=== PATIENT | male | born 1945 | race African-American/Black ===

== ENCOUNTER 2018-02-13 15:08 | Observation (INO) | payer OTHER ==
[2018-02-13] MEDS ORDERED: dilTIAZem HCL 125 MG/25 ML - 25 ML VIAL ONE (15:17)
[2018-02-13 15:33] VITALS: BMI 23.6
--- NOTE | 2018-02-13 16:05 | PDOC ---
History of Present Illness - General Chief Complaint: Palpitations Stated Complaint: RAPID HEART RATE Time Seen by Provider: 02/13/18 15:51 History Source: Patient, Significant Other Exam Limitations: No Limitations - History of Present Illness Initial Comments: This is a 73 YOM with h/o paroxysmal A-Fib (takes diltiazem and apixaban), HTN ( takes HCTZ), HLD (takes simvastatin), and gout (takes colchicine) who p/w lightheadedness which occurred for about one minute as he was driving to a regular appointment with his provider at the [facility]. He went inside to the appointment shortly after the lightheadedness had resolved, but still felt "off " and minimally SOB (he cannot describe his exact symptoms at that time other than this description). In the office, an EKG was done and he was found to be rapid A-fib with rate >200. He was sent here to the ED via EMS and was given Cardizem en route with improvement in his RHR to around 80 bpm. The patient currently denies any symptoms at all (no chest pain, abdominal pain, headache, neck pain, palpitations, numbness, tingling, weakness, vision changes, difficulty walking, or any other new symptoms. He has had this lightheadedness in the past, with the last episode about 2 weeks ago. [facility], and was observed in the ED there without intervention or testing until it resolved spontaneously. The patient sees a primary care nurse at the [facility] but cannot remember their name or the [facility] of [facility]. Past History - Past Medical History Allergies/Adverse Reactions: Allergies Allergy/AdvReac Type Severity Reaction Status Date / Time lisinopril Allergy Verified 02/13/18 15:30 Home Medications: Ambulatory Orders Apixaban [Eliquis -] 5 mg PO DAILY 02/13/18 Atorvastatin Ca [Lipitor] 80 mg PO HS 02/13/18 Cholecalciferol (Vitamin D3) [Vitamin D3 -] 2,000 unit PO BID 02/13/18 Colchicine 0.6 mg PO DAILY 02/13/18 Diltiazem Cd [Cardizem Cd -] 240 mg PO DAILY 02/13/18 Hydrochlorothiazide 50 mg PO DAILY 02/13/18 Cardiac Disorders: Yes COPD: No HTN: Yes - Surgical History Appendectomy: Yes - Suicide/Smoking/Psychosocial Hx Smoking History: Former smoker Have you smoked in the past 12 months: No If you are a former smoker, when did you quit?: 10 YEARS AGO Information on smoking cessation initiated: No Review of Systems - Review of Systems Able to Perform ROS?: Yes Constitutional: No: Chills, Fever, Unexplained wgt Loss HEENTM: No: Nose Congestion, Throat Pain Respiratory: Yes: Shortness of Breath (mild resolved). No: Cough Cardiac (ROS): Yes: Lightheadedness (resolved). No: Chest Pain ABD/GI: No: Constipated, Diarrhea, Nausea, Vomiting : No: Burning, Dysuria Musculoskeletal: No: Back Pain, Neck Pain Integumentary: No: Bruising, Rash Neurological: No: Headache, Numbness, Tingling, Weakness, Dizziness Endocrine: No: Unexplained Weight Gain, Unexplained Weight Loss *Physical Exam - Vital Signs Last Vital Signs Temp Pulse Resp BP Pulse Ox 98.1 F 75 20 144/63 98 02/13/18 15:31 02/13/18 20:09 02/13/18 20:09 02/13/18 20:09 02/13/18 20:10 - Physical Exam General Appearance: Yes: Nourished, Appropriately Dressed, Other (very pleasant adult male accompanied by his at bedside, answering questions appropriatley ). No: Apparent Distress HEENT: positive: EOMI, RUBEN, Normal ENT Inspection, Normal Voice, Hearing Grossly Normal. negative: Scleral Icterus (R), Scleral Icterus (L), Nasal Congestion Neck: positive: Trachea midline, Normal Thyroid, Supple. negative: Tender, Rigid Respiratory/Chest: positive: Lungs Clear, Normal Breath Sounds. negative: Respiratory Distress, Crackles, Rhonchi, Stridor, Wheezing Cardiovascular: positive: Regular Rhythm, Regular Rate, S1, S2, Murmur (3/6 late systolic murmur, 1/6 early systolic decrescendo murmur). negative: Edema, JVD Gastrointestinal/Abdominal: positive: Normal Bowel Sounds, Flat, Soft. negative : Tender, Organomegaly, Pulsatile Mass, Guarding Musculoskeletal: positive: Normal Inspection. negative: Decreased Range of Motion, Vertebral Tenderness Extremity: positive: Normal Capillary Refill, Normal Inspection, Normal Range of Motion. negative: Tender, Cyanosis Integumentary: positive: Normal Color, Dry, Warm. negative: Erythema, Rash, Bruising Neurologic: positive: food processor II-XII NML intact (grossly), Fully Oriented, Alert, Normal Mood/Affect, Normal Response, Motor Strength 5/5. negative: Facial Droop , Numbness, Sensory Deficit, Confused, Disoriented Heart Score/ECG Review - History History: Slightly suspicious - Electrocardiogram EKG: Non specific repolarization disturbance - Age Age: >/= 65 - Risk Factors Risk Factors Heart Score: Yes Hx Hypercholesterolemia, Yes Hx Hypertension Based on the list above the patient has:: 1-2 risk factors - Troponin Troponin: 1-3x normal limit - Score Heart Score - Total: 5 #1 Sinus rhythm, sinus arrhythmia, one PVC, normal axis, 1st degree AV block, flipped T-waves inferiorly, no prior EKGs available for comparison ED Treatment Course - LABORATORY CBC & Chemistry Diagram: 02/13/18 16:23 02/13/18 16:08 - ADDITIONAL ORDERS Additional order review: Laboratory Results 02/13/18 02/13/18 02/13/18 19:30 16:23 16:23 PT with INR 13.80 H INR 1.22 H PTT (Actin FS) 46.2 H Sodium Potassium Chloride Carbon Dioxide Anion Gap BUN Creatinine Creat Clearance w eGFR Random Glucose Calcium Phosphorus Magnesium Total Bilirubin AST ALT Alkaline Phosphatase Creatine Kinase Troponin I 0.12 H D B-Natriuretic Peptide Total Protein Albumin TSH 0.80 Urine Color Urine Appearance Urine pH Ur Specific [place] Urine Protein Urine Glucose (UA) Urine Ketones Urine Blood Urine Nitrite Urine Bilirubin Urine Urobilinogen Ur Leukocyte Esterase Blood Type Antibody Screen 02/13/18 02/13/18 02/13/18 16:19 16:19 16:19 PT with INR INR PTT (Actin FS) Sodium Potassium Chloride Carbon Dioxide Anion Gap BUN Creatinine Creat Clearance w eGFR Random Glucose Calcium Phosphorus Magnesium Total Bilirubin AST ALT Alkaline Phosphatase Creatine Kinase 127 Troponin I 0.09 H B-Natriuretic Peptide 2051.45 H Total Protein Albumin TSH Urine Color Straw Urine Appearance Clear Urine pH 6.0 Ur Specific [place] 1.005 Urine Protein Negative Urine Glucose (UA) Negative Urine Ketones Negative Urine Blood Negative Urine Nitrite Negative Urine Bilirubin Negative Urine Urobilinogen Negative Ur Leukocyte Esterase Negative Blood Type A POSITIVE Antibody Screen Negative 02/13/18 16:08 PT with INR INR PTT (Actin FS) Sodium 141 Potassium 3.6 Chloride 106 Carbon Dioxide 27 Anion Gap 8 BUN 17 Creatinine 1.4 H Creat Clearance w eGFR 49.54 Random Glucose 83 Calcium 8.3 L Phosphorus 3.7 Magnesium 2.0 Total Bilirubin 0.9 AST 17 ALT 12 Alkaline Phosphatase 69 Creatine Kinase Troponin I B-Natriuretic Peptide Total Protein 7.0 Albumin 3.4 TSH Urine Color Urine Appearance Urine pH Ur Specific [place] Urine Protein Urine Glucose (UA) Urine Ketones Urine Blood Urine Nitrite Urine Bilirubin Urine Urobilinogen Ur Leukocyte Esterase Blood Type Antibody Screen 02/13/18 16:23 RBC 5.62 H MCV 81.7 MCHC 33.8 RDW 14.7 MPV 10.8 Neutrophils % 75.9 Lymphocytes % 14.9 Monocytes % 8.2 Eosinophils % 0.6 Basophils % 0.4 - RADIOLOGY Radiology Studies Ordered: Category Date Time Status CHEST X-RAY PORTABLE* [RAD] Stat Radiology 02/13/18 16:08 Completed - Medications Given in the ED: ED Medications Discontinued Medications Generic Name Dose Route Start Last Admin Trade Name Freq PRN Reason Stop Dose Admin Sodium Chloride 1,000 ml 02/13/18 16:08 02/13/18 16:43 Normal Saline - IV 02/13/18 16:09 1,000 ml ONCE ONE Administration Medical Decision Making - Medical Decision Making Adult male patient p/w an episode of lightheadedness with EKG showing rapid A- rib with rate >200 at [facility] today. Takes apixaban and diltiazem at home, taking all meds at home as prescribed. Initial Vital Signs Temp Pulse Resp BP Pulse Ox 98.1 F 79 18 133/60 97 02/13/18 15:31 02/13/18 15:31 02/13/18 15:31 02/13/18 15:31 02/13/18 15:31 Exam: 3/6 late systolic decrescendo murmur, 1/6 early DDX IBNLT: arrhythmia (A-fib, WPW, Brugada, long QT, SVT, ventricular dysrhythmia, etc), medication effect, bronchitis/PNA, anxiety, PE, thyroid, etc. W/U ordered: EKG CXR CBCD CMP Mg Phos TSH UA UCx TX ordered: IVF O2 monitor HAS-BLED score is 2, correlates with 1.88% bleeding rate/year. [id number] score is 2, correlates with 2.2% adjusted stroke risk/year. EKG: Sinus rhythm, sinus arrhythmia, one PVC, normal axis, 1st degree AV block, flipped T-waves inferiorly, no prior EKGs available for comparison CXR: NADP Laboratory Tests 02/13/18 02/13/18 02/13/18 16:19 16:19 16:23 WBC 8.5 RBC 5.62 H Hgb 15.5 Hct 45.9 MCV 81.7 MCH 27.6 MCHC 33.8 RDW 14.7 MPV 10.8 Neutrophils % 75.9 Lymphocytes % 14.9 Monocytes % 8.2 Eosinophils % 0.6 Basophils % 0.4 Creatine Kinase 127 Troponin I 0.09 H B-Natriuretic Peptide 2051.45 H TSH Urine Color Straw Urine Appearance Clear Urine pH 6.0 Ur Specific [place] 1.005 Urine Protein Negative Urine Glucose (UA) Negative Urine Ketones Negative Urine Blood Negative Urine Nitrite Negative Urine Bilirubin Negative Urine Urobilinogen Negative Ur Leukocyte Esterase Negative 02/13/18 16:23 WBC RBC Hgb Hct MCV MCH MCHC RDW MPV Neutrophils % Lymphocytes % Monocytes % Eosinophils % Basophils % Creatine Kinase Troponin I B-Natriuretic Peptide TSH 0.80 Urine Color Urine Appearance Urine pH Ur Specific [place] Urine Protein Urine Glucose (UA) Urine Ketones Urine Blood Urine Nitrite Urine Bilirubin Urine Urobilinogen Ur Leukocyte Esterase Troponin will be repeated at 4 hours. Reassessment: Patient remains asymptomatic, no events on monitor, heart and lung exams unchanged. Vital Signs Temperature 98.1 F 02/13/18 15:31 Pulse Rate 75 02/13/18 20:09 Respiratory Rate 20 02/13/18 20:09 Blood Pressure 144/63 02/13/18 20:09 O2 Sat by Pulse Oximetry (%) 98 02/13/18 20:10 Given the patient's slight rise in 2nd troponin (0.12), murmur, flipped T-waves on exam; will ED Obs this patient. Patient and are unable to remember his primary care nurse's name but [facility] Microblog sent to [employer] for ED Obs notification. Dr. Heck spoke with Dr. Park and will inform them of the result of the third troponin. *DC/Admit/Observation/Transfer Diagnosis at time of Disposition: Atrial fibrillation with RVR, Lightheaded, Elevated brain natriuretic peptide ( BNP) level, Murmur, cardiac - Discharge Dispostion Condition at time of disposition: Guarded Admit: Yes - Referrals Referrals: ON STAFF,NOT [Primary Care Provider] - - Patient Instructions Printed Discharge Instructions: DI for Atrial Fibrillation Additional Instructions: You were seen in the ER for lightheadedness and rapid heart rate with atrial fibrillation on your EKG. We did lab work on your blood and urine, an electrocardiogram, and a chest x-ray, and we do not believe you are having a heart attack or other serious issue at this time. Your symptoms improved with the medications we given to you (the Cardizem). We did hear a heart murmur on your heart exam and you should follow up with your primary care nurse about this. We also After our assessment, we do not believe you are having a medical emergency at this time, and we believe you are safe to go home. Please follow up with your regular PCP doctor in 1-3 days. Also follow up with your primary care nurse ANTONELLA. Call their clinic as soon as possible, tell them you were seen in the ER, and tell them you need an appointment. If you have any new or worsening symptoms , especially worsening palpitations, chest discomfort, shortness of breath, sweats, nausea, loss of consciousness, or other symptoms, please come back to the ER at any time (24 hours a day). If you are having severe or life threatening symptoms, or symptoms that make it unsafe to drive or have someone drive you, please call 911. - Post Discharge Activity
[2018-02-13] MEDS ORDERED: SODIUM CHLORIDE 0.9% 500 ML INFUS.BAG IV ONE (16:08)
[2018-02-13 17:14] LABS: BASO % 0.4 % (0-2.0); EOS % 0.6 % (0-4.5); HEMATOCRIT 45.9 % (35.4-49); HEMOGLOBIN 15.5 GM/dL (11.7-16.9); LYMPH % 14.9 % (8-40); MCH 27.6 pg (25.7-33.7); MCHC 33.8 g/dl (32.0-35.9); MEAN CELL VOLUME 81.7 fl (80-96); MEAN PLT VOLUME 10.8 fl (7.5-11.1); MONO % 8.2 % (3.8-10.2); NEUT % 75.9 % (42.8-82.8); RBC 5.62 M/mm3 (4.00-5.60); RDW 14.7 % (11.9-15.9); WHITE BLOOD COUNT 8.5 K/mm3 (4.0-10.0)
[2018-02-13 17:18] LABS: URINE APPEARANCE CLEAR; URINE BILIRUBIN NEGATIVE (<2.0 mg/dL); URINE COLOR STRAW; URINE GLUCOSE (UA) NEGATIVE (NEGATIVE); URINE KETONE NEGATIVE (NEGATIVE); URINE LEUK ESTERASE NEGATIVE (NEGATIVE); URINE NITRITE NEGATIVE (NEGATIVE); URINE PROTEIN NEGATIVE (NEGATIVE); URINE UROBILINOGEN NEGATIVE mg/dL (0.2-1.0)
[2018-02-13 17:32] LABS: INR 1.22 (0.82-1.09); PROTHROMBIN TIME (PATIENT) 13.8 SEC (9.7-13.0)
[2018-02-13 17:35] LABS: ACTIVATED PTT 46.2 SECONDS (26.9-34.4)
[2018-02-13 17:48] LABS: N-TERMINAL BNP 2051.45 pg/ml (5-125)
--- NOTE | 2018-02-13 18:10 | PDOC ---
Attending Attestation - Resident Resident Name: Miriam Miller - ED Attending Attestation I have performed the following: I have examined & evaluated the patient, The case was reviewed & discussed with the resident, I agree w/resident's findings & plan, Exceptions are as noted - HPI HPI: 02/13/18 18:02 73 yo male with h/o paroxysmal afib <Shayy Heck - Last Filed: 02/13/18 18:02> - HPI HPI: The patient is a 73 year old male with past medical history of HTN, HLD, gout, and Paroxysmal Afib presents to the emergency department s/p an episode of lightheadedness lasting for a minute. The patient reports he was enroute to his appointment at the [facility] in [place] to see his PCP when the symptoms manifested. The patient reports his vital sign at [facility] showed elevated HR >200, he was given a shot of medication, after the med. his rates improved to mid 80s. The patient reports a similar incident 2 weeks ago, states going to the [facility] ed, he was let go after the symptoms subsided itself. Denies any chest pain, dyspnea, abd pain, or back pain. Denies any headaches, chills, fever, nausea, or vomiting. Denies dysuria, hematuria, or frequency or urgency to urinate. Social history: None reported. Allergies: lisinopril 02/13/18 20:03 - Physicial Exam PE: 02/13/18 20:03 GENERAL: Well-appearing, well-nourished. No apparent distress. HEENT: Normocephalic, atraumatic. PERRL, EOM intact. CARDIOVASCULAR: (+) Systolic murmur. Normal S1, S2. Regular rate and rhythm. PULMONARY: No bruit. Clear to auscultation bilaterally. ABDOMEN: Soft, non-distended, non-tender. EXTREMITIES: no pitting edema. Normal ROM in all four extremities. No gross deformities. SKIN: Warm, dry. No rash NEUROLOGICAL: No focal neurological deficits. - Medical Decision Making 02/13/18 20:03 Documentation prepared by Sloane Pereira, acting as durable medical equipment technician for Shayy Heck MD. <Sloane Pereira - Last Filed: 02/13/18 20:03>
[2018-02-13 18:40] LABS: PLATELET COUNT 214 K/MM3 (134-434); PLATELET ESTIMATE ADEQUATE
[2018-02-13 20:31] LABS: ALBUMIN 3.4 g/dl (3.4-5.0); ALK PHOS 69 U/L (45-117); ANION GAP 8 (8-16); BILIRUBIN,TOTAL 0.9 mg/dL (0.2-1.0); BLOOD UREA NITROGEN 17 mg/dL (7-18); CALCIUM 8.3 mg/dL (8.5-10.1); CHLORIDE 106 mmol/L (98-107); CO2 27 mmol/L (21-32); CREATININE 1.4 mg/dL (0.7-1.3); GLUCOSE,RANDOM 83 mg/dL (74-106); PHOSPHOROUS 3.7 mg/dL (2.5-4.9); POTASSIUM 3.6 mmol/L (3.5-5.1); SGOT/AST 17 U/L (15-37); SGPT/ALT 12 U/L (12-78); SODIUM 141 mmol/L (136-145)
--- NOTE | 2018-02-14 04:40 | PN ---
Teaching Attending Note Name of Resident: Patel Rowland ATTENDING PHYSICIAN STATEMENT I saw and evaluated the patient. I reviewed the resident's note and discussed the case with the resident. I agree with the resident's findings and plan as documented. SUBJECTIVE: 73 M with pmhx. of P A-FIB, HTN, HLD, and gout who presented with lightheadedness while driving. States his heart was beating fast earlier today at his Doctor's office at the [facility] and was found to have a heart rate of 220 there. States he had associated lightheadedness. States he missed one of his BP meds this am. Denies any chest pain, pressure, or shortness of breath. No nausea , vomiting or diarrhea. OBJECTIVE: Physical: VS: Vital Signs Period Temp Pulse Resp BP Sys/Cervantes Pulse Ox Last 24 Hr 98.1 F 75-89 18-20 125-144/51-63 97-98 GEN:NAD, Resting in bed, AA0X3 HEENT: NCAT, PERRL, Throat without erythema or exudates CARD: RRR S1, S2 II/ RAFAEL RESP: CTAB ABD: BSx4, NTD to palpation EXT:- C/C/E CBCD WBC 8.5 K/mm3 (4.0-10.0) 02/13/18 16:23 RBC 5.62 M/mm3 (4.00-5.60) H 02/13/18 16:23 Hgb 15.5 GM/dL (11.7-16.9) 02/13/18 16:23 Hct 45.9 % (35.4-49) 02/13/18 16:23 MCV 81.7 fl (80-96) 02/13/18 16:23 MCHC 33.8 g/dl (32.0-35.9) 02/13/18 16:23 RDW 14.7 % (11.9-15.9) 02/13/18 16:23 Plt Count 214 K/MM3 (134-434) 02/13/18 16:23 MPV 10.8 fl (7.5-11.1) 02/13/18 16:23 CMP Sodium 141 mmol/L (136-145) 02/13/18 16:08 Potassium 3.6 mmol/L (3.5-5.1) 02/13/18 16:08 Chloride 106 mmol/L (98-107) 02/13/18 16:08 Carbon Dioxide 27 mmol/L (21-32) 02/13/18 16:08 Anion Gap 8 (8-16) 02/13/18 16:08 BUN 17 mg/dL (7-18) 02/13/18 16:08 Creatinine 1.4 mg/dL (0.7-1.3) H 02/13/18 16:08 Creat Clearance w eGFR 49.54 (>60) 02/13/18 16:08 Random Glucose 83 mg/dL (74-106) 02/13/18 16:08 Calcium 8.3 mg/dL (8.5-10.1) L 02/13/18 16:08 Total Bilirubin 0.9 mg/dL (0.2-1.0) 02/13/18 16:08 AST 17 U/L (15-37) 02/13/18 16:08 ALT 12 U/L (12-78) 02/13/18 16:08 Alkaline Phosphatase 69 U/L (45-117) 02/13/18 16:08 Total Protein 7.0 g/dl (6.4-8.2) 02/13/18 16:08 Albumin 3.4 g/dl (3.4-5.0) 02/13/18 16:08 CARDIAC ENZYMES Creatine Kinase 120 IU/L (39-308) 02/14/18 02:30 Troponin I 0.13 ng/ml (0.00-0.05) H 02/14/18 02:30 EKG: EKG: SR with S. Arrythmia 1st degree AV Block with occ. PVC Q waves inferior leads. QtC 463 Ambulatory Orders Apixaban [Eliquis -] 5 mg PO DAILY 02/13/18 Atorvastatin Ca [Lipitor] 80 mg PO HS 02/13/18 Cholecalciferol (Vitamin D3) [Vitamin D3 -] 2,000 unit PO BID 02/13/18 Colchicine 0.6 mg PO DAILY 02/13/18 Diltiazem Cd [Cardizem Cd -] 240 mg PO DAILY 02/13/18 Hydrochlorothiazide 50 mg PO DAILY 02/13/18 ASSESSMENT AND PLAN: 73 M with pmhx. of A-FIB on Eliquis, HTN, HLD, who presents with lightheadedness 1.) A-FIB - Rate Controlled- Pt. kaylan missed Cardizem dose yesterday - C/W Cardizem - TSH - Recent Echo done at [facility] (obtain records) - C/W Eliquis 2.) Elevated Troponin - Most Likely Demand - Trend Trop/EKG - Cardio consult 3.)HTN -C/W Cardizem - C/W HCTZ 4.) NATIVIDAD - U lytes - Gentle IVF- No signs of HF - Avoid Nephrotoxine 5.) Dvt Ppx - On Eliquis Place in Obs-Tele -
--- NOTE | 2018-02-14 05:15 | HP ---
CHIEF COMPLAINT: palpitations PCP: [facility], Dr. Lewis HISTORY OF PRESENT ILLNESS: 73 yr old man with afib on elquis, HTN, HLD, gout BIBEMS due to rapid heart rate at PCP's office in [place]. He was feeling lightheadedness, vitals in the office showed HR of 220 and an ambulance was called. He did not take one of his blood pressure pills in the morning because it sometimes causes dizziness. denies constipation, abdominal cramping, chest pain, trouble swallowing, change in appetite, sob, cough. has not had a colonoscopy. thinks he lost ~10lbs since september unintentionally. Also endorses intermittent lose stools for one week at a time for past 8 months. ER course was notable for: (1) EKG (2) trop trend .09->.12->.13 Recent Travel: none PAST MEDICAL HISTORY: afib(dx'd 8 months ago),HTN, HLd, gout PAST SURGICAL HISTORY: appendectomy>10yrs ago, ankle surgeries >10yrs ago Social History: ashley mantilla, , has one adult son Smoking: quit 6yrs ago, less than 1pk/week was smoking from age 20 Alcohol: 6pk/beer/week from age 20, quit 6yrs ago Drugs: denies Family History: mother with HTN Allergies lisinopril Allergy (Verified 02/13/18 15:30) HOME MEDICATIONS: pt gets his meds at [facility] pharmacy, he has a list with him. Medication Instructions Recorded Apixaban [Eliquis -] 5 mg PO BID 02/13/18 Atorvastatin Ca [Lipitor] 80 mg PO HS 02/13/18 Cholecalciferol (Vitamin D3) 2,000 unit PO BID 02/13/18 [Vitamin D3 -] Colchicine 0.6 mg PO DAILY 02/13/18 Diltiazem Cd [Cardizem Cd -] 240 mg PO DAILY 02/13/18 Hydrochlorothiazide 50 mg PO DAILY 02/13/18 REVIEW OF SYSTEMS CONSTITUTIONAL: Present: weight change Absent: fever, chills, diaphoresis, generalized weakness, malaise, loss of appetite, HEENT: Absent: rhinorrhea, nasal congestion, throat pain, throat swelling, difficulty swallowing, mouth swelling, visual changes CARDIOVASCULAR: Present: lightheadedness, palpitations, irregular heart rate, Absent: chest pain, syncope, peripheral edema RESPIRATORY: Absent: cough, shortness of breath, dyspnea with exertion, orthopnea, wheezing, stridor, hemoptysis GASTROINTESTINAL: Absent: abdominal pain, abdominal distension, nausea, vomiting, diarrhea, constipation, melena, hematochezia GENITOURINARY: Absent: dysuria, frequency, urgency, hesitancy, hematuria, flank pain, genital pain MUSCULOSKELETAL: Absent: myalgia, arthralgia, joint swelling, back pain, neck pain SKIN: Absent: rash, itching, pallor HEMATOLOGIC/IMMUNOLOGIC: Absent: easy bleeding, easy bruising, lymphadenopathy, frequent infections ENDOCRINE: Absent: unexplained weight gain, unexplained weight loss, heat intolerance, cold intolerance NEUROLOGIC: Absent: headache, focal weakness or paresthesias, dizziness, unsteady gait, seizure PHYSICAL EXAMINATION Vital Signs - 24 hr 02/13/18 02/13/18 02/13/18 15:31 17:00 20:09 Temperature 98.1 F Pulse Rate 79 Pulse Rate [ 84 75 Radial] Respiratory 18 20 20 Rate Blood Pressure 133/60 Blood Pressure 137/51 144/63 [Left Arm] O2 Sat by Pulse 97 98 98 Oximetry (%) 02/13/18 02/14/18 20:10 03:44 Temperature Pulse Rate Pulse Rate [ 89 Radial] Respiratory 18 Rate Blood Pressure Blood Pressure 125/53 [Left Arm] O2 Sat by Pulse 98 98 Oximetry (%) GENERAL: Awake, alert, and fully oriented, in no acute distress. HEAD: Normal with no signs of trauma. EYES: Pupils equal, round and reactive to light, extraocular movements intact, sclera anicteric, conjunctiva clear. No lid lag. EARS, NOSE, THROAT: oropharynx clear without exudates. Moist mucous membranes. NECK: Normal range of motion, supple without lymphadenopathy, JVD, or masses. no bruits LUNGS: Breath sounds equal, clear to auscultation bilaterally. No wheezes, and no crackles. No accessory muscle use. HEART: Regular rate and rhythm, normal S1 and S2 with RAFAEL murmur heard in best in RUSB, no rub or gallop. ABDOMEN: Soft, nontender, not distended, normoactive bowel sounds, no guarding, no rebound, no masses. No hepatomegaly or splenomegaly. MUSCULOSKELETAL: Normal range of motion at all joints. No bony deformities or tenderness. No CVA tenderness. UPPER EXTREMITIES: 2+ radial pulses, warm, well-perfused. No cyanosis. No clubbing. No peripheral edema. LOWER EXTREMITIES: 2+ dp pulses, warm, well-perfused. No calf tenderness. No peripheral edema. NEUROLOGICAL: Cranial nerves II-XII intact. Normal speech. facial symmetry, 5/ 5 strength in all upper and lower muscle grps to flexion and extentiom, 5/5 hand breakfast attendant PSYCHIATRIC: Cooperative. Good eye contact. Appropriate mood and affect. SKIN: Warm, dry, normal turgor, no rashes or lesions noted, normal capillary refill. Laboratory Results - last 24 hr 02/13/18 02/13/18 02/13/18 16:08 16:19 16:19 WBC RBC Hgb Hct MCV MCH MCHC RDW Plt Count MPV Neutrophils % Lymphocytes % Monocytes % Eosinophils % Basophils % Platelet Estimate Platelet Comment PT with INR INR PTT (Actin FS) Sodium 141 Potassium 3.6 Chloride 106 Carbon Dioxide 27 Anion Gap 8 BUN 17 Creatinine 1.4 H Creat Clearance w eGFR 49.54 Random Glucose 83 Calcium 8.3 L Phosphorus 3.7 Magnesium 2.0 Total Bilirubin 0.9 AST 17 ALT 12 Alkaline Phosphatase 69 Creatine Kinase 127 Troponin I 0.09 H B-Natriuretic Peptide 2051.45 H Total Protein 7.0 Albumin 3.4 TSH Urine Color Straw Urine Appearance Clear Urine pH 6.0 Ur Specific [place] 1.005 Urine Protein Negative Urine Glucose (UA) Negative Urine Ketones Negative Urine Blood Negative Urine Nitrite Negative Urine Bilirubin Negative Urine Urobilinogen Negative Ur Leukocyte Esterase Negative Blood Type Antibody Screen 02/13/18 02/13/18 02/13/18 16:19 16:23 16:23 WBC 8.5 RBC 5.62 H Hgb 15.5 Hct 45.9 MCV 81.7 MCH 27.6 MCHC 33.8 RDW 14.7 Plt Count 214 MPV 10.8 Neutrophils % 75.9 Lymphocytes % 14.9 Monocytes % 8.2 Eosinophils % 0.6 Basophils % 0.4 Platelet Estimate Adequate Platelet Comment Large platelets PT with INR 13.80 H INR 1.22 H PTT (Actin FS) 46.2 H Sodium Potassium Chloride Carbon Dioxide Anion Gap BUN Creatinine Creat Clearance w eGFR Random Glucose Calcium Phosphorus Magnesium Total Bilirubin AST ALT Alkaline Phosphatase Creatine Kinase Troponin I B-Natriuretic Peptide Total Protein Albumin TSH Urine Color Urine Appearance Urine pH Ur Specific [place] Urine Protein Urine Glucose (UA) Urine Ketones Urine Blood Urine Nitrite Urine Bilirubin Urine Urobilinogen Ur Leukocyte Esterase Blood Type A POSITIVE Antibody Screen Negative 02/13/18 02/13/18 02/14/18 16:23 19:30 02:30 WBC RBC Hgb Hct MCV MCH MCHC RDW Plt Count MPV Neutrophils % Lymphocytes % Monocytes % Eosinophils % Basophils % Platelet Estimate Platelet Comment PT with INR INR PTT (Actin FS) Sodium Potassium Chloride Carbon Dioxide Anion Gap BUN Creatinine Creat Clearance w eGFR Random Glucose Calcium Phosphorus Magnesium Total Bilirubin AST ALT Alkaline Phosphatase Creatine Kinase 120 Troponin I 0.12 H D 0.13 H B-Natriuretic Peptide Total Protein Albumin TSH 0.80 Urine Color Urine Appearance Urine pH Ur Specific [place] Urine Protein Urine Glucose (UA) Urine Ketones Urine Blood Urine Nitrite Urine Bilirubin Urine Urobilinogen Ur Leukocyte Esterase Blood Type Antibody Screen ASSESSMENT/PLAN: 73 yr old man with HTN, afib, bibems for rapid heart rate in doctor's office, placed on observation for evaluation #Elevated troponins - r/o ACS - possibly due to rapid heart rate earlier, repeat one more draw to trend down - likely went into rapid rate due to missed dose of cardizem, check tsh to r/o thyroid dysfunction as cause - as per pt echo was completed 2 months ago and was normal, if possible obtain - Dr. Leo consulted for risk assessment/stress test, pt denied ever receiving a stress test in the past #Afib - continue eliquis BID 5mg - cardizem 240mg po daily #HTN - controlled - hctz 50mg po daily #HLD - atorvastatin 80mg po HS #DVT: on eliquis #Diet: low sodium Visit type - Emergency Visit Emergency Visit: Yes ED Registration Date: 02/13/18 Care time: The patient presented to the Emergency Department on the above date and was hospitalized for further evaluation of their emergent condition. - New Patient This patient is new to me today: Yes Date on this admission: 02/14/18 - Critical Care Critical Care patient: No Hospitalist Screening - Colonoscopy Questionnaire Colonoscopy Questionnaire: Colonoscopy Questionnaire - Patient: 50 - 75 years old and never had a screening colonoscopy: Unknown History of colon or rectal polyps, or CA: Unknown History of IBD, Crohn's disease or UC: Unknown History of abdominal radiation therapy as a child: Unknown - Relative: 1 with colon or rectal CA, or polyps at age 60 or younger: Unknown Colon or rectal CA diagnosed at age 45 or younger: Unknown Multiple relatives with colon or rectal CA: Unknown - Outcome: Screening Result: Negative Screen
[2018-02-14 09:01] LABS: ANION GAP 4 (8-16); BLOOD UREA NITROGEN 18 mg/dL (7-18); CALCIUM 9.2 mg/dL (8.5-10.1); CHLORIDE 106 mmol/L (98-107); CO2 31 mmol/L (21-32); CREATININE 1.6 mg/dL (0.7-1.3); GLUCOSE,RANDOM 86 mg/dL (74-106); POTASSIUM 4.3 mmol/L (3.5-5.1); SODIUM 141 mmol/L (136-145)
--- NOTE | 2018-02-14 09:27 | PN ---
Physical Exam: SUBJECTIVE: Briefly, 73yo M Afib (eliquis), HTN/HLD, and gout who was brought it from his PCP's office due to feeling lightheaded and found to have rapid HR up to 220 's. Currently pt has had not had any other episodes since admission. He reports not taking one of his medications at home, however he is a poor senior medical transcriptionist and does not remember which medication it is. He thinks it was Cardizem, but unsure at this time. OBJECTIVE: Vital Signs Period Temp Pulse Resp BP Sys/Cervantes Pulse Ox Last 24 Hr 98 F-98.1 F 74-89 16-20 117-144/51-65 97-100 GENERAL: NAD, awake, alert, and fully oriented, laying in bed HEENT: EOMI, WILLOW, sclera anicteric, moist mucosa noted, no JVD present LUNGS: CTA bilaterally, no wheezes, no crackles, no accessory muscle use. HEART: RRR, S1, S2 with harsh 3/6 RUSB murmur radiating to LLSB and 2/6 diastolic murmur at apex ABDOMEN: Soft, NT/ND, normoactive bowel sounds, no guarding, no rebound, no hepatomegaly, no masses. EXTREMITIES: 2+ DP pulses, warm, no edema. PSYCH: Normal mood, normal affect. SKIN: Warm, dry, no rashes or lesions noted Laboratory Results - last 24 hr 02/13/18 02/13/18 02/13/18 16:08 16:19 16:19 WBC RBC Hgb Hct MCV MCH MCHC RDW Plt Count MPV Neutrophils % Lymphocytes % Monocytes % Eosinophils % Basophils % Platelet Estimate Platelet Comment PT with INR INR PTT (Actin FS) Sodium 141 Potassium 3.6 Chloride 106 Carbon Dioxide 27 Anion Gap 8 BUN 17 Creatinine 1.4 H Creat Clearance w eGFR 49.54 Random Glucose 83 Calcium 8.3 L Phosphorus 3.7 Magnesium 2.0 Total Bilirubin 0.9 AST 17 ALT 12 Alkaline Phosphatase 69 Creatine Kinase 127 Troponin I 0.09 H B-Natriuretic Peptide 2051.45 H Total Protein 7.0 Albumin 3.4 TSH Urine Color Straw Urine Appearance Clear Urine pH 6.0 Ur Specific [employer] 1.005 Urine Protein Negative Urine Glucose (UA) Negative Urine Ketones Negative Urine Blood Negative Urine Nitrite Negative Urine Bilirubin Negative Urine Urobilinogen Negative Ur Leukocyte Esterase Negative Blood Type Antibody Screen 02/13/18 02/13/18 02/13/18 16:19 16:23 16:23 WBC 8.5 RBC 5.62 H Hgb 15.5 Hct 45.9 MCV 81.7 MCH 27.6 MCHC 33.8 RDW 14.7 Plt Count 214 MPV 10.8 Neutrophils % 75.9 Lymphocytes % 14.9 Monocytes % 8.2 Eosinophils % 0.6 Basophils % 0.4 Platelet Estimate Adequate Platelet Comment Large platelets PT with INR 13.80 H INR 1.22 H PTT (Actin FS) 46.2 H Sodium Potassium Chloride Carbon Dioxide Anion Gap BUN Creatinine Creat Clearance w eGFR Random Glucose Calcium Phosphorus Magnesium Total Bilirubin AST ALT Alkaline Phosphatase Creatine Kinase Troponin I B-Natriuretic Peptide Total Protein Albumin TSH Urine Color Urine Appearance Urine pH Ur Specific [employer] Urine Protein Urine Glucose (UA) Urine Ketones Urine Blood Urine Nitrite Urine Bilirubin Urine Urobilinogen Ur Leukocyte Esterase Blood Type A POSITIVE Antibody Screen Negative 02/13/18 02/13/18 02/14/18 16:23 19:30 02:30 WBC RBC Hgb Hct MCV MCH MCHC RDW Plt Count MPV Neutrophils % Lymphocytes % Monocytes % Eosinophils % Basophils % Platelet Estimate Platelet Comment PT with INR INR PTT (Actin FS) Sodium Potassium Chloride Carbon Dioxide Anion Gap BUN Creatinine Creat Clearance w eGFR Random Glucose Calcium Phosphorus Magnesium Total Bilirubin AST ALT Alkaline Phosphatase Creatine Kinase 120 Troponin I 0.12 H D 0.13 H B-Natriuretic Peptide Total Protein Albumin TSH 0.80 Urine Color Urine Appearance Urine pH Ur Specific [employer] Urine Protein Urine Glucose (UA) Urine Ketones Urine Blood Urine Nitrite Urine Bilirubin Urine Urobilinogen Ur Leukocyte Esterase Blood Type Antibody Screen 02/14/18 08:30 WBC RBC Hgb Hct MCV MCH MCHC RDW Plt Count MPV Neutrophils % Lymphocytes % Monocytes % Eosinophils % Basophils % Platelet Estimate Platelet Comment PT with INR INR PTT (Actin FS) Sodium 141 Potassium 4.3 Chloride 106 Carbon Dioxide 31 Anion Gap 4 L BUN 18 Creatinine 1.6 H Creat Clearance w eGFR Random Glucose 86 Calcium 9.2 Phosphorus Magnesium Total Bilirubin AST ALT Alkaline Phosphatase Creatine Kinase Troponin I B-Natriuretic Peptide Total Protein Albumin TSH Urine Color Urine Appearance Urine pH Ur Specific [employer] Urine Protein Urine Glucose (UA) Urine Ketones Urine Blood Urine Nitrite Urine Bilirubin Urine Urobilinogen Ur Leukocyte Esterase Blood Type Antibody Screen Active Medications Generic Name Dose Route Start Last Admin Trade Name Freq PRN Reason Stop Dose Admin Apixaban 5 mg 02/14/18 10:00 Eliquis - PO BID [facility] Atorvastatin Calcium 80 mg 02/14/18 22:00 Lipitor - PO HS [facility] Cholecalciferol 2,000 unit 02/14/18 10:00 Vitamin D3 - PO BID [facility] Colchicine 0.6 mg 02/14/18 10:00 Colcrys - PO DAILY [facility] Diltiazem HCl 240 mg 02/14/18 10:00 Cardizem Cd - PO DAILY [facility] Sodium Chloride 1,000 mls @ 75 mls/hr 02/14/18 09:30 Normal Saline - IV ASDIR [facility] ASSESSMENT/PLAN: 1) Atrial fibrillation with RVR --Possibly 2/2 to missing cardizem dose --No episodes currently --Cardiology on board: --Discontinue Cardizem in setting of systolic LV dysfunction --Start Coreg 12.5mg PO BID --start Diovan 40mg PO qDaily --start Aldactone 25mg PO qdaily --Continue Eliquis 5mg PO BID ==TSH normal; no signs of infection 2) Elevated troponin --Most likely demand in setting of RVR --Continue to trend 3) Aortic stenosis --Echocardiogram showing moderate to severe AR with moderate LV function reduction --Needs futher cardiac work-up and possible surgical intervention --Cardiology recs: Advised for early intervention including R and L heart cardiac cath and eventual aortic valve replacement 4) ANTIVIDAD --Most likely hypoperfusion to kidneys with RVR episode; unknown baseline currently --Gently hydrate with IVF --Holding HCTZ FEN: Fluids: NS@75cc/hr Electrolyte abnormalities: None currently Nutrition: Sodium controlled diet PPX: DVT - Already on Eliquis GI - Not indicated currently Dispo: continue cardiac monitoring; will [facility]; potential transfer for cardiac catherization Case discussed with Dr. Jean Carlos Mccall, DO - IM PGY-1 Visit type - Emergency Visit Emergency Visit: No - New Patient This patient is new to me today: No - Critical Care Critical Care patient: No
[2018-02-14] MEDS: SODIUM CHLORIDE 1,000 ML IV SCH (09:46)
[2018-02-14] MEDS ORDERED: HYDROCHLOROTHIAZIDE 25 MG TABLET (FP) PO SCH (10:00)
--- NOTE | 2018-02-14 10:05 | EKG ---
Test Reason : Blood Pressure : / mmHG Vent. Rate : 080 BPM Atrial Rate : 080 BPM P-R Int : 224 ms QRS Dur : 120 ms QT Int : 402 ms P-R-T Axes : 043 -09 -54 degrees QTc Int : 463 ms SINUS RHYTHM WITH SINUS ARRHYTHMIA WITH 1ST DEGREE A-V BLOCK WITH OCCASIONAL PREMATURE VENTRICULAR COMPLEXES POSSIBLE LEFT ATRIAL ENLARGEMENT LEFT VENTRICULAR HYPERTROPHY WITH QRS WIDENING INFERIOR INFARCT , AGE UNDETERMINED Inferior T wave inversions ABNORMAL ECG NO PREVIOUS ECGS AVAILABLE Confirmed by MD Gary, Jorge Luis ([id number]) on 02/14/2018 10:04:56 AM Referred By: Confirmed By:Jorge Luis Vega MD
[2018-02-14] MEDS: COLCHICINE 0.6 MG TABLET (FP) PO SCH (10:20)
[2018-02-14] MEDS: APIXABAN 5 MG TABLET PO SCH ×2 (10:20→22:19)
[2018-02-14] MEDS: CHOLECALCIFEROL (VITAMIN D3) 1,000 UNIT TABLET (FP) PO SCH ×2 (10:21→22:20)
--- NOTE | 2018-02-14 14:59 | PN ---
Teaching Attending Note Name of Resident: Salvador Mccall ATTENDING PHYSICIAN STATEMENT I saw and evaluated the patient. I reviewed the resident's note and discussed the case with the resident. I agree with the resident's findings and plan as documented. SUBJECTIVE: seen at 9:30 am. denied any CP or SOB. no palpitations ,. no cough . no fever ro chills. reports similar episode of light headedness 2 weeks ago. this time had light headedness , evaluated by PCP and was told Hr was 200. told in ambulance he had elevated HR still and was given an injection OBJECTIVE: NAD, AAOx3. MMM, no JVD CV: RRR, 3/6 DM, at RUSB with radiation to LLSB. 2/6 SM at apex with radiation to [place]. 2/6 DM at apex. Lungs: CTAB Ext: no edema ASSESSMENT AND PLAN: 73 y/o man with h/o A fib, HTN, HLP, and gout who presented to hs PCP with palpitations and light headedness and was found to have A fib with RVR . 1- A fib with RVR. could be due to missing a dose of his cardizem. elevated troponin cold be due to demand event in setting of tachycardia . EKG With sinus rhythm , Q waves in inferior leads and TWI in inferiolateral leads. - echo with mod-severe AR, and mOd LV reduction - d/w Dr. Nielsen. dc cardizem, add coreg and ACEI - tele - cont eliquis - monitor electrolytes - TSH NL, no signs of infection - Not in heart failure clinically - [facility] 2- NATIVIDAD: try gentle hydration - monitor with ACEI - obtain Cr base line [facility] 3- HTN: ACEI , and coreg hold HCTZ while hydrating 4- Mod-severe AR: need further w/u and possible surgical intervention HLOC
--- NOTE | 2018-02-14 15:10 | PN ---
Progress Note (short form) - Note Progress Note: Chief Complaint: Events noted, notes reviewed, denies any chest discomfort, denies any dyspnea, denies any palpitations but reported transient dizziness History of Present Illness: Seen and examined on telemetry. Full consult dictated Echocardiography performed earlier today preliminary report of which revealed Left ventricular cavity dilatation with moderate diffuse global hypokinesia with estimated left ventricular ejection fraction between 35-40%, severe aortic valve regurgitation, mild to moderate mitral valve regurgitation - Current Medication List Current Medications: Current Medications Apixaban (Eliquis -) 5 mg PO BID [facility] Last Admin: 02/14/18 10:20 Dose: 5 mg Atorvastatin Calcium (Lipitor -) 80 mg PO [facility] Cholecalciferol (Vitamin D3 -) 2,000 unit PO BID [facility] Last Admin: 02/14/18 10:21 Dose: 2,000 unit Colchicine (Colcrys -) 0.6 mg PO DAILY [facility] Last Admin: 02/14/18 10:20 Dose: 0.6 mg Diltiazem HCl (Cardizem Cd -) 240 mg PO DAILY [facility] Last Admin: 02/14/18 10:20 Dose: 240 mg Review of Systems: Constitutional: Denies fever or chills Head and Neck: Denies Headaches, photophobia or blurring of vision Respiratory: Denies cough or sputum production Cardiovascular: As noted above Gastrointestinal: Denies nausea, vomiting, diarrhea or abdominal discomfort Genitourinary: Denies frequency, hesitancy or urgency Musculoskeletal: No symptoms reported Endocrine: No symptoms reported - Objective Vital Signs: Last Vital Signs Temp Pulse Resp BP Pulse Ox 98 F 62 22 141/58 98 02/14/18 06:11 02/14/18 10:33 02/14/18 10:33 02/14/18 10:33 02/14/18 10:33 Intake & Output 02/11/18 02/12/18 02/13/18 02/14/18 23:59 23:59 23:59 23:59 Weight 142 lb 142 lb HEENT: Atraumatic, [place]IT[place], EOMI Neck: Supple Negative JVD No Bruit Cardiovascular: S1 S2 Regular Rate and Rhythm Grade 2/6 RAFAEL, Grade 3/6 Diastolic murmur Respiratory: CTA Bilaterally Gastrointestinal: Soft Benign Normal Bowel Sounds Ext: Negative Edema Labs: Troponin, BNP 02/13/18 02/13/18 02/14/18 16:19 19:30 02:30 Troponin I 0.09 H 0.12 H D 0.13 H B-Natriuretic Peptide 2051.45 H 02/14/18 02/14/18 08:30 10:15 Troponin I 0.08 H D 0.07 H B-Natriuretic Peptide CBC, BMP 02/13/18 16:23 02/14/18 08:30 INR, PTT INR 1.22 (0.82-1.09) H 02/13/18 16:23 Hepatic Panel Total Bilirubin 0.9 mg/dL (0.2-1.0) 02/13/18 16:08 AST 17 U/L (15-37) 02/13/18 16:08 ALT 12 U/L (12-78) 02/13/18 16:08 Alkaline Phosphatase 69 U/L (45-117) 02/13/18 16:08 Albumin 3.4 g/dl (3.4-5.0) 02/13/18 16:08 Assessment/Plan ASSESSMENT: 1. Paroxysmal atrial fibrillation currently in sinus rhythm on chronic anticoagulation therapy with Eliquis, [id number] score of 3. 2. Systolic left ventricular dysfunction with class 0 [place] [employer] classification left ventricular failure, compensated/euvolemic, BMP elevation most likely related to the above-noted paroxysmal atrial fibrillation , the above-noted systolic left ventricular dysfunction could be related to tachycardia induced cardiomyopathy versus valvular disease/aortic valve induced cardiomyopathy. 3. Aortic valve disease aortic valve regurgitation, severe in severity. 4. Mitral valve regurgitation, moderate in severity. 5. Coronary artery disease/ischemic dilated cardiomyopathy to be considered in the differential diagnosis. 6. Hypertensive cardiovascular disease/hypertensive cardiomyopathy to be considered in the differential diagnosis. 7. Hypercholesterolemia. 8. Chronic kidney disease. PLAN: 1. Recommend discontinuation of Cardizem CD therapy considering the above- noted clinical presentation (contraindicated with the above-noted systolic left ventricular dysfunction). 2. Recommend initiation of Coreg therapy at 12.5 mg twice daily. 3. Recommend initiation of Diovan therapy at 40 mg once daily considering the above-noted clinical presentation with close monitoring of renal function and electrolytes. 4. Recommend initiation of Aldactone therapy at 25 mg once daily considering the above-noted clinical presentation with caution and close monitoring of renal function and electrolytes. 5. Reviewed in detail with the patient the above-noted clinical presentation and advised early intervention for the above-noted valvular pathology is recommended including proceeding with right and left heart cardiac catheterization coronary angiography and eventual referral for aortic valve replacement/CryoMaze procedure/+/- left atrial appendage ligation, above is to be performed on outpatient basis. Lashell Cox MD
[2018-02-14] MEDS ORDERED: VALSARTAN 80 MG TABLET (UD) ONE (16:50)
[2018-02-14] MEDS: VALSARTAN 40 MG TABLET (FP) PO SCH (16:52)
--- NOTE | 2018-02-14 17:01 | CONS ---
DATE OF CONSULTATION: 02/14/2018 REQUESTING LIBERTARIAN: Hospitalist CHIEF COMPLAINT: Evaluation of cardiac arrhythmia. HISTORY OF PRESENT ILLNESS: A 73-year-old male of descent with known history of valvular heart disease, aortic valve disease, aortic valve regurgitation, paroxysmal atrial fibrillation, CHADS2-VASc score of 3, which was noted a few months ago on anticoagulation therapy with Eliquis, hypertensive cardiovascular disease, hypercholesterolemia, who denied any history of diabetes mellitus, who presented to [facility] emergency room when he was noted to be by his primary care provider to have rapid heartbeat, and he was noted to be in atrial fibrillation with rapid ventricular response. Patient had reported dizziness, and upon arrival to the emergency room patient subsequently converted to sinus rhythm. Patient had reported dizziness but denied any palpitations. Patient denied any near syncope or syncope. Patient denied any chest discomfort. Patient denied any dyspnea, orthopnea, paroxysmal nocturnal dyspnea, or peripheral edema. Patient denied any fatigue or tiredness. He was informed by his primary care provider, who was at the [facility], that he has a heart murmur, subsequent evaluation of which was undertaken by a winderman who had informed the patient that he has aortic valve regurgitation, and eventually aortic valve replacement procedure is to be performed. Patient currently is in sinus rhythm and does not offer any complaints. Echocardiography was performed which revealed systolic left ventricular dysfunction, moderate in severity, with estimated left ventricular ejection fraction of 40%, severe eccentric aortic valve regurgitation and mild to moderate mitral valve regurgitation with no pulmonary hypertension. PAST MEDICAL HISTORY: Aortic valve disease, aortic valve regurgitation, hypertensive cardiovascular disease, hypercholesterolemia. SOCIAL HISTORY: Remote history of tobacco abuse. FAMILY HISTORY: No family history of coronary artery disease. ALLERGIES: LISINOPRIL. MEDICAL THERAPY: Currently includes Eliquis 5 mg twice a day, Lipitor 80 mg once a day, vitamin D 2000 international units twice a day, colchicine 0.6 mg once a day for gout, Cardizem CD 240 mg once a day. REVIEW OF SYSTEMS: Head and neck: Denies headache, photophobia, blurring of vision. Respiratory: No cough, sputum production. Cardiovascular: As noted above. Gastrointestinal: Denies nausea, vomiting, diarrhea, abdominal discomfort. Musculoskeletal: No symptoms reported. Genitourinary: No frequency or urgency. Endocrine: No symptoms reported. PHYSICAL EXAMINATION: Vital signs: Blood pressure 141/58 mmHg, pulse rate 62 beats per minute. Head/Neck: Pupils equal, reactive to light and accommodation. Extraocular muscles intact. Anicteric sclerae. Negative JVD. No bruit appreciated. Chest: Clear to auscultation, percussion. Cardiovascular: S1, S2. Regular. Grade 2/6 systolic ejection murmur. Grade 3 diastolic murmur at the aortic area. Abdomen: Soft, benign. Normoactive bowel sounds. Extremity: Negative edema. Intact distal pulses. No calf tenderness. CBC: Revealed white cell count 8.5, hemoglobin 15.5, platelets 214. Basic metabolic profile revealed sodium 141, potassium 4.3, BUN 18, creatinine 1.6, glucose 86, INR 1.22. B-type natriuretic peptide was 2051. Troponin I levels were noted. Electrocardiogram reveals sinus rhythm with premature ventricular contractions 80 beats per minute, increased voltage, and inferior Q waves suggestive of an inferior infarct, age undetermined, and nonspecific ST segment and T wave abnormality. ASSESSMENT: 1. Paroxysmal atrial fibrillation, currently in sinus rhythm on chronic anticoagulation therapy with Eliquis, CHADS-VASc score of 3. 2. Systolic left ventricular dysfunction with class 0 [place] [employer] classification left ventricular failure, compensated/euvolemic. BNP elevation most likely related to the above noted paroxysmal atrial fibrillation; the above noted systolic left ventricular dysfunction could be related to tachycardia induced cardiomyopathy versus valvular disease/aortic valve disease induced cardiomyopathy. 3. Aortic valve disease, aortic valve regurgitation, severe in severity. 4. Mitral valve regurgitation, mild to moderate in severity. 5. Coronary artery disease with evidence of demand ischemic injury most likely related to the above noted tachycardia. Ischemic dilated cardiomyopathy to be considered in the differential diagnosis. 6. Hypertensive cardiovascular disease. Hypertensive cardiomyopathy to be considered in the differential diagnosis. 7. Hypercholesterolemia. 8. Chronic kidney disease. PLAN: 1. Recommend discontinuation of Cardizem CD therapy and considering the above noted clinical presentation, contraindicated with the above noted systolic left ventricular dysfunction. 2. Recommend initiation of Coreg therapy at 12.5 mg twice daily. 3. Recommend initiation of Diovan therapy at 40 mg once daily, considering the above noted clinical presentation with close monitoring of renal function and electrolytes. 4. Recommend initiation of Aldactone therapy at 25 mg once daily considering the above noted clinical presentation with caution and close monitoring of renal function and electrolytes. 5. Reviewed in detail the patient the above noted clinical presentation and advised early intervention for the above noted valvular pathology is recommended including proceeding with right and left heart cardiac catheterization coronary angiography and eventual referral for aortic valve replacement/Cryo-Maze procedure, plus/minus left atrial appendage ligation. Above to be performed on outpatient basis. 6. Recommend the addition of daily Ecotrin therapy. Thank you for the kind referral. SURI NUÑEZ M.D. [id number] MTDD
[2018-02-14] MEDS ORDERED: ATORVASTATIN CA 80 MG TABLET (FP) PO SCH (22:00)
[2018-02-14] MEDS: CARVEDILOL 12.5 MG TABLET (FP) PO SCH (22:18)
[2018-02-14] MEDS ORDERED: CARVEDILOL 12.5 MG TABLET (FP) ONE (22:21)
[2018-02-15 08:11] LABS: HEMATOCRIT 44.7 % (35.4-49); HEMOGLOBIN 14.9 GM/dL (11.7-16.9); MCH 27.2 pg (25.7-33.7); MCHC 33.3 g/dl (32.0-35.9); MEAN CELL VOLUME 81.8 fl (80-96); MEAN PLT VOLUME 10.8 fl (7.5-11.1); PLATELET COUNT 201 K/MM3 (134-434); RBC 5.46 M/mm3 (4.00-5.60); RDW 14.7 % (11.9-15.9); WHITE BLOOD COUNT 7.9 K/mm3 (4.0-10.0)
[2018-02-15 08:12] LABS: BASO % 0.4 % (0-2.0); EOS % 1.2 % (0-4.5); LYMPH % 15.5 % (8-40); MONO % 8.2 % (3.8-10.2); NEUT % 74.7 % (42.8-82.8)
[2018-02-15 08:22] VITALS: BP 129/46; PULSE 62; TEMP 97.5
[2018-02-15 08:49] LABS: ANION GAP 4 (8-16); BLOOD UREA NITROGEN 19 mg/dL (7-18); CALCIUM 8.6 mg/dL (8.5-10.1); CHLORIDE 107 mmol/L (98-107); CO2 30 mmol/L (21-32); CREATININE 1.5 mg/dL (0.7-1.3); GLUCOSE,RANDOM 82 mg/dL (74-106); POTASSIUM 3.8 mmol/L (3.5-5.1); SODIUM 141 mmol/L (136-145)
[2018-02-15] MEDS ORDERED: SPIRONOLACTONE 25 MG TABLET (FP) PO SCH (10:00)
[2018-02-15] MEDS: SODIUM CHLORIDE 1,000 ML IV SCH (10:01)
[2018-02-15] MEDS: CHOLECALCIFEROL (VITAMIN D3) 1,000 UNIT TABLET (FP) PO SCH (10:02)
[2018-02-15] MEDS: COLCHICINE 0.6 MG TABLET (FP) PO SCH (10:02)
[2018-02-15] MEDS: VALSARTAN 40 MG TABLET (FP) PO SCH (10:02)
[2018-02-15] MEDS: CARVEDILOL 12.5 MG TABLET (FP) PO SCH (10:02)
[2018-02-15] MEDS: APIXABAN 5 MG TABLET PO SCH (10:02)
--- NOTE | 2018-02-15 13:07 | PN ---
Progress Note, Physician History of Present Illness: Remains in SR, denies chest pain, dyspnea, palpitations. - Current Medication List Current Medications: Active Medications Apixaban (Eliquis -) 5 mg PO BID [facility] Last Admin: 02/15/18 10:02 Dose: 5 mg Atorvastatin Calcium (Lipitor -) 80 mg PO HS [facility] Last Admin: 02/14/18 22:18 Dose: 80 mg Carvedilol (Coreg -) 12.5 mg PO BID [facility] Last Admin: 02/15/18 10:02 Dose: 12.5 mg Cholecalciferol (Vitamin D3 -) 2,000 unit PO BID [facility] Last Admin: 02/15/18 10:02 Dose: 2,000 unit Colchicine (Colcrys -) 0.6 mg PO DAILY [facility] Last Admin: 02/15/18 10:02 Dose: 0.6 mg Sodium Chloride (Normal Saline -) 1,000 mls @ 75 mls/hr IV ASDIR [facility] Last Admin: 02/15/18 10:01 Dose: 75 mls/hr Spironolactone (Aldactone -) 25 mg PO DAILY [facility] Last Admin: 02/15/18 10:02 Dose: 25 mg Valsartan (Diovan -) 40 mg PO DAILY [facility] Last Admin: 02/15/18 10:02 Dose: 40 mg - Objective Vital Signs: Vital Signs Temperature 97.5 F L 02/15/18 08:20 Pulse Rate 62 02/15/18 08:20 Respiratory Rate 20 02/15/18 08:20 Blood Pressure 129/46 02/15/18 08:20 O2 Sat by Pulse Oximetry (%) 100 02/15/18 08:20 Constitutional: Yes: No Distress, Calm, Thin Neck: Yes: Supple Cardiovascular: Yes: Regular Rate and Rhythm, Murmur (2/6 SM, 3/6 DM) Respiratory: Yes: Regular, CTA Bilaterally Gastrointestinal: Yes: Normal Bowel Sounds, Soft Edema: No Labs: CBC, BMP 02/15/18 06:20 02/15/18 06:20 INR, PTT INR 1.22 (0.82-1.09) H 02/13/18 16:23 - ....Imaging EKG: Report Reviewed (Tele: NSR) Problem List - Problems (1) Severe aortic insufficiency Code(s): I35.1 - NONRHEUMATIC AORTIC (VALVE) INSUFFICIENCY (2) Valvular cardiomyopathy Code(s): I42.8 - OTHER CARDIOMYOPATHIES (3) Hypertensive cardiomyopathy Code(s): I11.9 - HYPERTENSIVE HEART DISEASE WITHOUT HEART FAILURE; I43 - CARDIOMYOPATHY IN DISEASES CLASSIFIED ELSEWHERE Qualifiers: Heart failure presence: without heart failure Qualified Code(s): I11.9 - Hypertensive heart disease without heart failure; I43 - Cardiomyopathy in diseases classified elsewhere; I43 - Cardiomyopathy in diseases classified elsewhere; I43 - Cardiomyopathy in diseases classified elsewhere; I43 - Cardiomyopathy in diseases classified elsewhere (4) Chronic kidney disease Code(s): N18.9 - CHRONIC KIDNEY DISEASE, UNSPECIFIED Qualifiers: Chronic kidney disease stage: stage 2 (mild) Qualified Code(s): N18.2 - Chronic kidney disease, stage 2 (mild) (5) Atrial fibrillation with RVR Code(s): I48.91 - UNSPECIFIED ATRIAL FIBRILLATION Assessment/Plan Echocardiography 02/14/2018 Mild left ventricular cavity dilatation with moderate diffuse global hypokinesia with estimated left ventricular ejection fraction between 35-40%, severe aortic valve regurgitation, mild mitral valve regurgitation, tr TR 1. Paroxysmal atrial fibrillation currently in sinus rhythm on chronic anticoagulation therapy with Eliquis, [id number] score of 3. 2. Systolic left ventricular dysfunction with class 0 [place] [employer] classification left ventricular failure, compensated/euvolemic, BNP elevation most likely related to the above-noted paroxysmal atrial fibrillation , the above-noted systolic left ventricular dysfunction could be related to tachycardia induced cardiomyopathy versus valvular disease/aortic valve induced cardiomyopathy. 3. Aortic valve disease aortic valve regurgitation, severe in severity. 4. Coronary artery disease/ischemic dilated cardiomyopathy to be considered in the differential diagnosis. 5. Hypertensive cardiovascular disease/hypertensive cardiomyopathy to be considered in the differential diagnosis. 6. Hypercholesterolemia. 7. Chronic kidney disease. PLAN: 1. Continue Coreg therapy at 12.5 mg twice daily, Eliquis 5 bid, Lipitor 80 qhs 2. Increase Diovan 80 mg once daily considering the above-noted clinical presentation with close monitoring of renal function and electrolytes. 3. Continue Aldactone therapy 25 mg once daily considering the above-noted clinical presentation with caution and close monitoring of renal function and electrolytes. 4. Reviewed in detail with the patient the above-noted clinical presentation and advised early intervention for the above-noted valvular pathology is recommended including proceeding with right and left heart cardiac catheterization coronary angiography and eventual referral for aortic valve replacement/CryoMaze procedure/+/- left atrial appendage ligation, above is to be performed on outpatient basis.
[2018-02-15] MEDS ORDERED: VALSARTAN 40 MG TABLET (FP) PO SCH (13:30)
--- NOTE | 2018-02-15 15:10 | DS ---
Physical Exam: Patient is ok to be discharged as per Cardiology; Dr. Leo, patient will follow up with cardiologists Dr. Acosta in a week period. Patient is converted back to NSR, added Eliquis to his regimen. <Tamera Ramirez - Last Filed: 02/17/18 09:05> Physical Exam: SUBJECTIVE: Pt denies any new complaints. No episodes of tachycardia or lightheadedness since. OBJECTIVE: Vital Signs Period Temp Pulse Resp BP Sys/Cervantes Pulse Ox Last 24 Hr 97.5 F-98.1 F 54-70 16-21 108-134/39-48 97-100 PHYSICAL EXAM GENERAL: NAD, awake, alert, and fully oriented, laying in bed HEENT: EOMI, WILLOW, sclera anicteric, moist mucosa noted, no JVD present LUNGS: CTA bilaterally, no wheezes, no crackles, no accessory muscle use. HEART: RRR, S1, S2 with harsh 3/6 RUSB murmur radiating to LLSB and 2/6 diastolic murmur at apex ABDOMEN: Soft, NT/ND, normoactive bowel sounds, no guarding, no rebound, no hepatomegaly, no masses. EXTREMITIES: 2+ DP pulses, warm, no edema. PSYCH: Normal mood, normal affect. SKIN: Warm, dry, no rashes or lesions noted LABS Laboratory Results - last 24 hr 02/14/18 02/14/18 02/15/18 14:20 17:58 06:20 WBC 7.9 RBC 5.46 Hgb 14.9 Hct 44.7 MCV 81.8 MCH 27.2 MCHC 33.3 RDW 14.7 Plt Count 201 MPV 10.8 Neutrophils % 74.7 Lymphocytes % 15.5 Monocytes % 8.2 Eosinophils % 1.2 D Basophils % 0.4 Sodium Potassium Chloride Carbon Dioxide Anion Gap BUN Creatinine Random Glucose Calcium Ur Random Sodium 84 Ur Random Potassium 14.6 Ur Random Chloride 82 Urine Creatinine 123.0 02/15/18 06:20 WBC RBC Hgb Hct MCV MCH MCHC RDW Plt Count MPV Neutrophils % Lymphocytes % Monocytes % Eosinophils % Basophils % Sodium 141 Potassium 3.8 Chloride 107 Carbon Dioxide 30 Anion Gap 4 L BUN 19 H Creatinine 1.5 H Random Glucose 82 Calcium 8.6 Ur Random Sodium Ur Random Potassium Ur Random Chloride Urine Creatinine HOSPITAL COURSE: Date of Admission:02/13/18 Date of Discharge: 02/15/18 Pt admitted 02/13/18 due to tachycardia up to 200bpm at his PCP with some associated lightheadedness attributed to missing a dose of cardizem. Pt was placed in telemetry observation for his Atrial fib with RVR and did not have any relapsing episodes since placement back onto home medication. Pt unfortunately was found to have moderate to severe aortic stenosis with LV dysfunction on echocardiogram. Pt had his cardizem discontinued with added Aldactone 25mg PO qdaily, Coreg 12.5mg PO BID, and Diovan 40mg PO qDaily to optimize his medication regiment. Pt was also found to have NATIVIDAD due to hypoperfusion of his kidneys which resolved with gentle hydration of NS75cc/hr and cessation of his HCTZ. Pt is being transferred to a higher level of care facility for recommended L and R cardiac catherization with likely future aortic valve repair. Pt is in stable condition and understands risks v. benefits of transfer. Minutes to complete discharge: 35 <Salvador Mccall - Last Filed: 02/27/18 20:58> Discharge Summary - Home Medications Comprehensive Discharge Medication List: Ambulatory Orders Apixaban [Eliquis -] 5 mg PO DAILY 02/13/18 Atorvastatin Ca [Lipitor] 80 mg PO HS 02/13/18 Cholecalciferol (Vitamin D3) [Vitamin D -] 2,000 unit PO BID 02/13/18 Colchicine 0.6 mg PO DAILY 02/13/18 Carvedilol [Coreg -] 12.5 mg PO BID #60 tablet 02/15/18 Spironolactone [Aldactone -] 25 mg PO DAILY #30 tablet 02/15/18 Valsartan [Diovan] 80 mg PO DAILY #60 tablet 02/15/18 <Tamera Ramirez - Last Filed: 02/17/18 09:05> Reason For Visit: ELEVATED BRAIN NATRIURETIC PEPTIDE (BNP) LEVEL Current Active Problems Atrial fibrillation with RVR (Acute) Chronic kidney disease (Acute) Elevated brain natriuretic peptide (BNP) level (Acute) Hypertensive cardiomyopathy (Acute) Lightheaded (Acute) Murmur, cardiac (Acute) Severe aortic insufficiency (Acute) Valvular cardiomyopathy (Acute) - Home Medications Comprehensive Discharge Medication List: Ambulatory Orders Apixaban [Eliquis -] 5 mg PO DAILY 02/13/18 Atorvastatin Ca [Lipitor] 80 mg PO HS 02/13/18 Cholecalciferol (Vitamin D3) [Vitamin D -] 2,000 unit PO BID 02/13/18 Colchicine 0.6 mg PO DAILY 02/13/18 Carvedilol [Coreg -] 12.5 mg PO BID #60 tablet 02/15/18 Spironolactone [Aldactone -] 25 mg PO DAILY #30 tablet 02/15/18 Valsartan [Diovan] 80 mg PO DAILY #60 tablet 02/15/18 <Salvador Mccall - Last Filed: 02/27/18 20:58> Condition: Stable - Instructions Diet, Activity, Other Instructions: You were seen in the ER for lightheadedness and rapid heart rate with atrial fibrillation on your EKG. We did lab work on your blood and urine, an electrocardiogram, and a chest x-ray, and we do not believe you are having a heart attack or other serious issue at this time. Your symptoms improved with the medications we gave you in the hospital. in addition we did hear a heart murmur on your heart exam and you should follow up with your animal anatomist about this. Medications Please stop your Diltiazem Instead I have sent medications to your pharmacy ([address] [place] [address]): Coreg 12.5mg TWICE per day by mouth Diovan 80mg ONCE per day by mouth Aldactone 25mg ONCE per day by mouth Follow-up Please follow with Dr. Cox (animal anatomist) as soon as possible as he will want to schedule a cardiac catherization and plan for any valve replacements; Call their clinic as soon as possible, tell them you were seen in the ER, and tell them you need an appointment. Please follow-up with Dr. Lewis at the [facility] within a week for follow-up on what happened here If you have any new or worsening symptoms, especially worsening palpitations, chest discomfort, shortness of breath, sweats, nausea, loss of consciousness, or other symptoms, please come back to the ER at any time (24 hours a day). If you are having severe or life threatening symptoms, or symptoms that make it unsafe to drive or have someone drive you, please call 911. Referrals: Lashell Cox MD [Staff Physician] - ON STAFF,NOT [Primary Care Provider] - Disposition: HOME This patient is new to me today: No Emergency Visit: No Critical Care patient: No - Discharge Referral Referred to [facility] No <Salvador Mccall - Last Filed: 02/27/18 20:58>
== END 2018-02-15 15:30 | disposition home or self-care (01) ==
LOC: JER 15:08 → JERBED 21:16
PROVIDERS: ADMIT Internal Medicine; ATTEND Internal Medicine
PROC: 3E0337Z Introduction of Electrolytic and Water Balance Substance into Peripheral Vein, Percutaneous Approach (ICD-10-PCS; principal; 2018-02-13)
DX: I48.0 Paroxysmal atrial fibrillation (principal); R42 Dizziness and giddiness; R79.89 Other specified abnormal findings of blood chemistry; R01.1 Cardiac murmur, unspecified; E78.5 Hyperlipidemia, unspecified; M10.9 Gout, unspecified; Z79.01 Long term (current) use of anticoagulants; Z87.891 Personal history of nicotine dependence; R77.8 Other specified abnormalities of plasma proteins; N17.9 Acute kidney failure, unspecified; I50.1 Left ventricular failure, unspecified; I35.1 Nonrheumatic aortic (valve) insufficiency; I34.0 Nonrheumatic mitral (valve) insufficiency; I42.0 Dilated cardiomyopathy; I42.8 Other cardiomyopathies; I43 Cardiomyopathy in diseases classified elsewhere; I11.9 Hypertensive heart disease without heart failure; I12.9 Hypertensive chronic kidney disease with stage 1 through stage 4 chronic kidney disease, or unspecified chronic kidney disease; N18.9 Chronic kidney disease, unspecified
CPT/HCPCS: 36415; 71045-TC-FY; 80048; 80053; 81003; 82436; 82550; 82570; 83735; 83880; 84100; 84133; 84300; 84443; 84484; 85025; 85610; 85730; 86850; 86900; 86901; 87086; 93005; 93010; 93306-TC; 99285-25; G0378; J7030

== ENCOUNTER 2018-03-16 10:59 | Day surgery (SDC) | payer OTHER ==
[2018-03-15 15:39] VITALS: BMI 23.6
[2018-03-16] MEDS ORDERED: LIDOCAINE VISCOUS 2% ORAL/TOP 100 ML BOTTLE MM ONE (12:10)
[2018-03-16 12:46] VITALS: TEMP 97.9
[2018-03-16 13:40] VITALS: BP 142/68; PULSE 64
== END 2018-03-16 13:35 | disposition home or self-care (01) ==
LOC: JASU-ENDO 10:59
PROVIDERS: ATTEND Internal Medicine Cardiovascular Disease
PROC: B24BZZ4 Ultrasonography of Heart with Aorta, Transesophageal (ICD-10-PCS; principal; 2018-03-16 12:00)
DX: I35.1 Nonrheumatic aortic (valve) insufficiency (principal); I48.0 Paroxysmal atrial fibrillation; I10 Essential (primary) hypertension; I42.8 Other cardiomyopathies; E78.5 Hyperlipidemia, unspecified
CPT/HCPCS: 92960; 93312; 93325